=== PATIENT | male | born 1935 | race Caucasian/White ===

== ENCOUNTER 2017-03-05 09:34 | Day surgery (SDC) | payer MEDICARE ==
[~2017-03-05 09:34] MED LIST: AMIO200T2 PO; APIX5TAB PO; ASPI81TA50 PO; ATEN50TA PO; CALC1TAB75 PO; CARI350T14 PO; FENO134C PO; FURO-69 PO; FURO20TA3 PO; HYDROmorphone 2 MG/ML VIAL IV PRN; IV RINGERS,LACTATED 1000ML 1,000 ML IV SCH; LIDOCAINE 1% PF 2 ML VIAL. ID PRN; LIDOCAINE 2% 100 MG/5 ML SYRINGE. ONE; LISI-334 PO; METO50TA2 PO; MORPHINE SULFATE 2 MG/ML DISP.SYRIN. IV PRN; MULT-658 PO; OMEG1CAP27 PO; ONDANSETRON PF 4 MG/2 ML VIAL. IV PRN; OXYC1TAB8 PO; PROCHLORPERAZINE 10 MG/2 ML VIAL. IV PRN; PROPOFOL 10 MG/ML (20ML) VIAL. IV ONE; SENN1TAB70 PO; fentaNYL PF VIAL 100 MCG/2 ML VIAL IV PRN
--- NOTE | 2017-03-05 10:09 | EKG ---
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
[2017-03-05] MEDS ORDERED: BENZOCAINE ONE 20% MUCOSAL SPRAY. (10:40)
[2017-03-05] MEDS ORDERED: LIDOCAINE 2% VISCOUS 15 ML SOLUTION. ONE (10:40)
[2017-03-05] MEDS ORDERED: LIDOCAINE 2% TOPICAL JELLY 30GM TUBE. TP ONE ×2 (10:41)
--- NOTE | 2017-03-05 11:41 | EKG ---
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
[2017-03-05 11:58] VITALS: BP 130/73
--- NOTE | 2017-03-05 16:58 | CARD ---
APPROVED REPORT EXAM: Transesophageal echocardiogram with color flow Doppler and Synchronized Cardioversion. INDICATION Atrial Fibrillation PROCEDURE After obtaining informed consent, patient underwent transesophageal echo in the PACU. Type of Sedation : General Anesthesia Sedation was provided by anesthesiologist, see EMR for medications administered. Transesophageal probe was inserted and advanced into esophagus by Storm Chow MD. The NASREEN was performed without complications. Synchronized Cardioversion attempted: Successful Synchronized Cardioversion acheived with 200 Joules after 1 attempt(s). Rhythm following Synchronized Cardioversion: Sinus Rhythm with PAC's Throughout the procedure, the blood pressure, pulse oximetry, cardiac rhythm, and rate were monitored . The patient tolerated the procedure without adverse effects. Recovery from conscious sedation was une ventful and vital signs were stable. LEFT VENTRICLE The left ventricle is normal size. There is normal left ventricular wall thickness. Left ventricle sy stolic function is normal. The Ejection Fraction is 50-55%. There is normal LV segmental wall motion. RIGHT VENTRICLE The right ventricle is normal size. The right ventricular systolic function is normal. ATRIA The left atrium size is mild to moderately dilated. The right atrium size is normal. The interatrial septum is intact with no evidence for an atrial septal defect or patent foramen ovale as noted on 2-D or Doppler imaging. There is no thrombus noted in the left atrial appendage. AORTIC VALVE The aortic valve is normal in structure. The aortic valve is trileaflet. Doppler and Color Flow revea led mild aortic regurgitation. There is no significant aortic valvular stenosis. MITRAL VALVE The mitral valve leaflets are thickened. Doppler and Color Flow revealed mild mitral regurgitation. TRICUSPID VALVE The tricuspid valve is normal in structure and function. Doppler and Color Flow revealed no tricuspid valve regurgitation noted. PULMONIC VALVE The pulmonic valve is not well visualized. Doppler and Color Flow revealed no pulmonic valvular regur gitation. GREAT VESSELS The aortic root is normal in size. The ascending aorta is normal in size. The IVC was visualized and appears normal in size. The SVC was visualized and appears normal in size. PERICARDIAL EFFUSION There is no evidence of significant pericardial effusion. Critical Notification Critical Value: No <Conclusion> Left ventricle systolic function is normal. The Ejection Fraction is 50-55%. There is normal LV segmental wall motion. There is no thrombus noted in the left atrial appendage. Successful cardioversion to Sinus Rhythm The left atrium size is mild to moderately dilated.
== END 2017-03-05 12:44 | disposition home or self-care (01) ==
LOC: SURG 09:34
PROVIDERS: ATTEND Internal Medicine Cardiovascular Disease
DX: I08.0 Rheumatic disorders of both mitral and aortic valves (principal); I48.91 Unspecified atrial fibrillation; I11.0 Hypertensive heart disease with heart failure; I50.9 Heart failure, unspecified; M19.91 Primary osteoarthritis, unspecified site; F17.200 Nicotine dependence, unspecified, uncomplicated; Z87.39 Personal history of other diseases of the musculoskeletal system and connective tissue; Z96.643 Presence of artificial hip joint, bilateral; Z72.89 Other problems related to lifestyle; Z86.69 Personal history of other diseases of the nervous system and sense organs; Z88.0 Allergy status to penicillin
CPT/HCPCS: 92960; 93005; 93312; 93325; 99152; 99153; J2704

== ENCOUNTER 2018-09-29 14:10 | Emergency (ER) | payer MEDICARE ==
[~2018-09-29] VITALS: Ht 180.3 cm; Wt 133.4 kg
[~2018-09-29 14:10] MED LIST changes: -AMIO200T2 PO; +AMIO200T4 PO; +AMLO10TA4 PO; +AMLO5TAB10 PO; +GLUC-142 PO; -HYDROmorphone 2 MG/ML VIAL IV PRN; -IV RINGERS,LACTATED 1000ML 1,000 ML IV SCH; -LIDOCAINE 1% PF 2 ML VIAL. ID PRN; -LIDOCAINE 2% 100 MG/5 ML SYRINGE. ONE; +LISI-130 PO; -METO50TA2 PO; +METO50TA6 PO; -MORPHINE SULFATE 2 MG/ML DISP.SYRIN. IV PRN; -ONDANSETRON PF 4 MG/2 ML VIAL. IV PRN; -PROCHLORPERAZINE 10 MG/2 ML VIAL. IV PRN; -PROPOFOL 10 MG/ML (20ML) VIAL. IV ONE; -fentaNYL PF VIAL 100 MCG/2 ML VIAL IV PRN
--- NOTE | 2018-09-29 15:07 | PHYS DOC ---
Past Medical History Past Medical History: A-Fib, COPD, High Cholesterol, Hypertension, Other Additional Past Medical Histor: neuropathy Past Surgical History: Other Additional Past Surgical Histo: x2 rocío hip replaced, rectal fistula Alcohol Use: Rarely Drug Use: None Adult General Chief Complaint Chief Complaint: ABNORMAL LABS [facility] HPI Patient is a 83 year old Male who presents with [Abnormal labs today]. Reports he was at Dr Sibley office today and was told his potassium level was extremely high. States he had labs drawn a few days earlier and was found to have decre ased renal function. Does report he has been taking his lasix, had taken it twice daily, has had decreased urine output, but reports this has been similar for the past few months. Had been also taking Bactrim over the past 5 days for foot wound. Reports when they talked to Dr Sibley today, they were told to stop taking Lisinopril and Bactrim, but patient had already taken both today. Patient reports he feels good, only a little SOA, had been given Albuterol inhaler at Dr Sibley office today as well. Review of Systems Review of Systems Constitutional: Denies fever or chills [] Eyes: Denies change in visual acuity, redness, or eye pain [] HENT: Denies nasal congestion or sore throat [] Respiratory: Denies cough . Reports minimal shortness of breath [] Cardiovascular: No additional information not addressed in HPI [Does report increased edema to lower extremities over the past few weeks] GI: Denies abdominal pain, nausea, vomiting, bloody stools or diarrhea [] : Denies hematuria [] Does report decreased urinary output over the past few weeks Musculoskeletal: Denies back pain or joint pain other than normal[] Integument: Denies rash. Does have chronic skin lesions to lower extremities [] Neurologic: Denies headache, focal weakness or sensory changes [] Endocrine: Denies polyuria or polydipsia [] All other systems were reviewed and found to be within normal limits, except as documented in this note. Current Medications Current Medications Current Medications Medications (Trade) Dose Ordered Sig/Bradford Start Time Stop Time Status Last Admin Dose Admin Sodium Chloride 500 ml @ 500 mls/hr 1X ONCE 09/29/18 16:45 09/29/18 17:44 09/29/18 16:45 500 MLS/HR Allergies Allergies Allergies Coded Allergies Type Severity Reaction Last Updated Verified Penicillins Allergy Severe Shortness of Air 03/05/17 Yes adhesive tape Allergy Intermediate 11/14/17 Yes Physical Exam Physical Exam Constitutional: Well developed, well nourished, no acute distress, non-toxic appearance. [] Eyes: PERRLA, EOMI, conjunctiva normal, no discharge. [] Neck: Normal range of motion, no tenderness, supple, no stridor. [] Cardiovascular:Heart rate regular rhythm, no murmur [] Lungs & Thorax: Bilateral breath sounds clear to auscultation [] Abdomen: Bowel sounds normal, soft, no tenderness, no masses, no pulsatile masses. abdomen firm, indifferent from normal[] Skin: Warm, dry, no erythema, no rash. [] Back: No tenderness, no CVA tenderness. [] Extremities: No tenderness, no cyanosis, no clubbing, ROM intact. Minimal pitting edema to lower extremities. [] Neurologic: Alert and oriented X 3, normal motor function, normal sensory funct ion, no focal deficits noted. [] Psychologic: Affect normal, judgement normal, mood normal. [] Current Patient Data Vital Signs Vital Signs Date Time Temp Pulse Resp B/P (MAP) Pulse Ox O2 Delivery O2 Flow Rate FiO2 09/29/18 15:30 98.0 100 20 143/74 (97) 94 Room Air 98.0 Lab Values Laboratory Tests Test 09/29/18 15:10 White Blood Count 6.7 x10^3/uL (4.0-11.0) Red Blood Count 4.17 x10^6/uL (4.30-5.70) L Hemoglobin 12.2 g/dL (13.0-17.5) L Hematocrit 37.6 % (39.0-53.0) L Mean Corpuscular Volume 90 fL (79-100) Mean Corpuscular Hemoglobin 29 pg (25-35) Mean Corpuscular Hemoglobin Concent 32 g/dL (31-37) Red Cell Distribution Width 15.3 % (11.5-14.5) H Platelet Count 244 x10^3/uL (140-400) Neutrophils (%) (Auto) 73 % (31-73) Lymphocytes (%) (Auto) 19 % (24-48) L Monocytes (%) (Auto) 6 % (0-9) Eosinophils (%) (Auto) 2 % (0-3) Basophils (%) (Auto) 1 % (0-3) Neutrophils # (Auto) 4.9 x10^3uL (1.8-7.7) Lymphocytes # (Auto) 1.3 x10^3/uL (1.0-4.8) Monocytes # (Auto) 0.4 x10^3/uL (0.0-1.1) Eosinophils # (Auto) 0.1 x10^3/uL (0.0-0.7) Basophils # (Auto) 0.0 x10^3/uL (0.0-0.2) Sodium Level 132 mmol/L (136-145) L Potassium Level 5.1 mmol/L (3.5-5.1) Chloride Level 100 mmol/L (98-107) Carbon Dioxide Level 22 mmol/L (21-32) Anion Gap 10 (6-14) Blood Urea Nitrogen 55 mg/dL (8-26) H Creatinine 2.7 mg/dL (0.7-1.3) H Estimated GFR (Cockcroft-Gault) 22.6 BUN/Creatinine Ratio 20 (6-20) Glucose Level 91 mg/dL (70-99) Calcium Level 8.8 mg/dL (8.5-10.1) Total Bilirubin 0.3 mg/dL (0.2-1.0) Aspartate Amino Transferase (AST) 49 U/L (15-37) H Alanine Aminotransferase (ALT) 27 U/L (16-63) Alkaline Phosphatase 37 U/L (46-116) L GW-Lzs-F-Type Natriuretic Peptide 825 pg/mL (0-449) H Total Protein 6.3 g/dL (6.4-8.2) L Albumin 3.6 g/dL (3.4-5.0) Albumin/Globulin Ratio 1.3 (1.0-1.7) Laboratory Tests 09/29/18 15:10 Laboratory Tests 09/29/18 15:10 EKG EKG EKG Obtained 09/29/18 @ 1534. Interpreted by Dr Zambrano Sinus rhythm, prolonged NJ, HR 100. No STEMI noted. [] Radiology/Procedures Radiology/Procedures PROCEDURE: CHEST PA & LATERAL CHEST PA LATERAL Clinical indications: Shortness of air. COMPARISON: December 18, 2009. 11/12/2017. Findings: Hyperinflation is seen consistent with COPD. No acute lung infiltrate or pleural effusion or pulmonary edema or lung mass or pneumothorax is seen. The heart size, pulmonary vasculature, mediastinum and both ric are stable. The osseous structures appear intact. Impression: No acute radiographic abnormality is seen. Electronically signed by: Natalie Sifuentes MD (09/29/2018 3:57 PM) [facility] DICTATED and SIGNED BY: NATALIE SIFUENTES MD DATE: 09/29/18 1557[] Course & Med Decision Making Course & Med Decision Making Pertinent Labs and Imaging studies reviewed. (See chart for details) Discussed findings with patient and family. Patient reports he really does not want to stay in hospital. Advised to stop taking bactrim and stop taking Lisinopril as previously recommended by PCP Advised to follow up with PCP, advised renal function declining from previous visits. Patient understands plan of care without further questions or concerns, will stop bactrim and lisinopril, will follow up with PCP. Has appointment with wound clinic next week. [] Dragon Disclaimer Dragon Disclaimer This electronic medical record was generated, in whole or in part, using a voice recognition dictation system. Departure Departure Impression: Primary Impression: Abnormal laboratory test result Additional Impression: Renal function impairment Disposition: 01 HOME, SELF-CARE Condition: GOOD Referrals: MADONNA LUCAS (PCP) Patient Instructions: Chronic Renal Insufficiency Additional Instructions: Stop taking the Lisinopril and Bactrim Follow up with Dr Sibley Your Potassium today was 5.1 Your Creatine was 2.7 - this has worsened since your last visit Problem Qualifiers PAT CASEY APRN September 29, 2018 15:07
[2018-09-29 15:20] LABS: BASO % 1 % (0-3); EOS # 0.1 x10^3/uL (0.0-0.7); EOS % 2 % (0-3); HEMATOCRIT 37.6 % (39.0-53.0); HEMOGLOBIN 12.2 g/dL (13.0-17.5); LYMPH # 1.3 x10^3/uL (1.0-4.8); LYMPH % 19 % (24-48); MEAN CORPUSCULAR HEMOGLOBIN 29 pg (25-35); MEAN CORPUSCULAR HGB CONC 32 g/dL (31-37); MEAN CORPUSCULAR VOLUME 90 fL (79-100); MONO # 0.4 x10^3/uL (0.0-1.1); MONO % 6 % (0-9); NEUT # 4.9 x10^3uL (1.8-7.7); NEUT % 73 % (31-73); PLATELET COUNT 244 x10^3/uL (140-400); RED BLOOD COUNT 4.17 x10^6/uL (4.30-5.70); RED CELL DISTRIBUTION WIDTH 15.3 % (11.5-14.5); WHITE BLOOD COUNT 6.7 x10^3/uL (4.0-11.0)
[2018-09-29 15:28] LABS: CALCIUM 8.8 mg/dL (8.5-10.1); CREATININE 2.7 mg/dL (0.7-1.3); GFR 22.6; POTASSIUM 5.1 mmol/L (3.5-5.1)
[2018-09-29 15:34] LABS: ALBUMIN 3.6 g/dL (3.4-5.0); ALBUMIN/GLOBULIN RATIO 1.3 (1.0-1.7); TOTAL BILIRUBIN 0.3 mg/dL (0.2-1.0); TOTAL PROTEIN 6.3 g/dL (6.4-8.2)
--- NOTE | 2018-09-29 16:00 | RAD ---
CHEST PA LATERAL Clinical indications: Shortness of air. COMPARISON: December 18, 2009. 11/12/2017. Findings: Hyperinflation is seen consistent with COPD. No acute lung infiltrate or pleural effusion or pulmonary edema or lung mass or pneumothorax is seen. The heart size, pulmonary vasculature, mediastinum and both ric are stable. The osseous structures appear intact. Impression: No acute radiographic abnormality is seen. Electronically signed by: Nacho Sifuentes MD (09/29/2018 3:57 PM) [place] [id number]
[2018-09-29] MEDS ORDERED: IV NORMAL SALINE 500ML BAG 500 ML IV ONE (16:45)
[2018-09-29 17:15] LABS: BILIRUBIN,URINE NEGATIVE (NEG); CLARITY,URINE CLEAR; COLOR,URINE YELLOW; NITRITE,URINE NEGATIVE (NEG); PROTEIN,URINE NEGATIVE (NEG-TRACE); UROBILINOGEN,URINE 0.2 mg/dL (0.2 mg/dL)
[2018-09-29 17:22] LABS: BACTERIA,URINE 0 /HPF (0-FEW); RBC,URINE 0 /HPF (0-2); WBC,URINE 0 /HPF (0-4)
[2018-09-29 17:32] VITALS: BP 144/79
--- NOTE | 2018-09-30 06:59 | EKG ---
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
== END 2018-09-29 18:41 | disposition home or self-care (01) ==
LOC: ER 14:10
DX: R79.89 Other specified abnormal findings of blood chemistry (principal); R94.4 Abnormal results of kidney function studies; I48.91 Unspecified atrial fibrillation; J44.9 Chronic obstructive pulmonary disease, unspecified; E78.00 Pure hypercholesterolemia, unspecified; I10 Essential (primary) hypertension; G62.9 Polyneuropathy, unspecified; Z88.0 Allergy status to penicillin; Z88.8 Allergy status to other drugs, medicaments and biological substances
CPT/HCPCS: 36415; 71046; 80053; 81001; 83880; 85025; 93005; 99285; J7040

== ENCOUNTER → 2018-10-08 | Outpatient (CLI) | payer MEDICARE ==
[2018-09-29 17:32] VITALS: BP 144/79
--- NOTE | 2018-10-08 16:58 | RAD ---
Left lower extremity arterial ultrasound, 10/08/2018: HISTORY: Nonhealing left leg wounds Duplex evaluation of the major arteries in the left lower extremity was performed including grayscale, color-flow and spectral Doppler analysis. The left common femoral, superficial femoral and popliteal arteries demonstrate triphasic Doppler waveforms. There are mild scattered atherosclerotic plaques. No significant focal velocity acceleration is seen to suggest high-grade stenosis. In the lower leg there are moderate arterial calcifications. Patent posterior tibial and anterior tibial arteries are evident in the left lower leg demonstrating monophasic Doppler waveforms. The left peroneal artery could not be visualized. The left dorsalis pedis artery is patent demonstrating a monophasic Doppler waveform. IMPRESSION: 1. Mild atherosclerotic plaquing without evidence of significant femoral-popliteal stenosis. 2. Moderate degradation of the Doppler waveforms in the left lower leg. 3. Nonvisualization of the left peroneal artery suggesting occlusion of that vessel. Ankle-brachial indices, 10/08/2018: Resting JM measurements were obtained. The right JM is 1.5 while the left JM is 1.09. The patient's known arterial calcifications may be elevating these measurements into the normal range. IMPRESSION: Normal resting JM measurements. Electronically signed by: Vazquez Noland MD (10/08/2018 4:55 PM) [facility]
== END | disposition home or self-care (01) ==
LOC: US 15:18
PROVIDERS: ATTEND Preventive Medicine Undersea and Hyperbaric Medicine
DX: I70.292 Other atherosclerosis of native arteries of extremities, left leg (principal); L97.929 Non-pressure chronic ulcer of unspecified part of left lower leg with unspecified severity
CPT/HCPCS: 93922; 93926

== ENCOUNTER → 2018-12-11 | Outpatient (CLI) | payer MEDICARE ==
--- NOTE | 2018-12-11 13:21 | EKG ---
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
--- NOTE | 2018-12-11 14:06 | CARD ---
MR#: [id number] Date of Study: 12/11/2018 Ordering Physician: PEPPER WALTERS, Referring Physician: PEPPER WALTERS, Tech: Lizzette Alfaro [facility] APPROVED REPORT EXAM: Two-dimensional and M-mode echocardiogram with Doppler and color Doppler. Other Information Quality : Technically LimitedHR: 133bpm Rhythm : Atrial FibrillationTechnically limited study due to body habitus, COPD, and heart rate. INDICATION Congenital Heart Disease 2D DIMENSIONS RVDd4.2 (2.9-3.5cm)Left Atrium(2D)4.0 (1.6-4.0cm) IVSd1.6 (0.7-1.1cm)Aortic Root(2D)4.2 (2.0-3.7cm) LVDd5.7 (3.9-5.9cm)LVOT Diameter2.6 (1.8-2.4cm) PWd1.3 (0.7-1.1cm)LVDs3.8 (2.5-4.0cm) FS (%) 32.7 %SV97.0 ml LVEF(%)60.4 (>50%) Aortic Valve AoV Peak Jian.142.0cm/sAoV VTI20.3cm AO Peak GR.8.1mmHgLVOT Peak Jian.84.1cm/s AO Mean GR.4mmHgAVA (VMAX)3.05cm2 DINORAH (VTI)3.00cm2 Tricuspid Valve TR P. [id number]/sRAP [id number] TR Peak Gr.[id number] LEFT VENTRICLE The Left Ventricle is borderline dilated. There is mild concentric left ventricular hypertrophy. The left ventricular systolic function is normal and the ejection fraction is within normal range. Ventri cular ejection fraction is 60-65% There is normal LV segmental wall motion. Transmitral Doppler flow pattern is abnormal. RIGHT VENTRICLE The right ventricle is mildly dilated. There is normal right ventricular wall thickness. Right ventri cular function cannot be assessed. ATRIA The left atrium is mildly dilated. The right atrium size is normal. The interatrial septum is intact with no evidence for an atrial septal defect or patent foramen ovale as noted on 2-D or Doppler imagi ng. AORTIC VALVE The aortic valve is not well visualized. Doppler and Color Flow revealed no significant aortic regurg itation. There is no significant aortic valvular stenosis. MITRAL VALVE The mitral valve is normal in structure and function. There is no evidence of mitral valve prolapse. There is no mitral valve stenosis. Doppler and Color Flow revealed trace mitral valve regurgitation. TRICUSPID VALVE The tricuspid valve is normal in structure and function. Doppler and Color Flow revealed trace tricus pid regurgitation. The PA pressure was estimated at 31 mmHg. There is no tricuspid valve prolapse or vegetation. There is no tricuspid valve stenosis. PULMONIC VALVE The pulmonic valve is not well visualized. GREAT VESSELS The aortic root is mildly enlarged. The IVC was not visualized. PERICARDIAL EFFUSION There is no evidence of significant pericardial effusion. Critical Notification Critical Value: No <Conclusion> The Left Ventricle is borderline dilated. The left ventricular systolic function is normal and the ejection fraction is within normal range. Ventricular ejection fraction is 60-65% There is mild concentric left ventricular hypertrophy. There is no significant aortic valvular stenosis. Doppler and Color Flow revealed no significant aortic regurgitation. Doppler and Color Flow revealed trace mitral valve regurgitation. Doppler and Color Flow revealed trace tricuspid regurgitation. The PA pressure was estimated at 31 mmHg. The aortic root is mildly enlarged. Signed by : Curt Begum MD Electronically Approved : 12/11/2018 14:06:17
== END | disposition home or self-care (01) ==
LOC: ECHO 12:34
PROVIDERS: ATTEND Internal Medicine Cardiovascular Disease
DX: I51.7 Cardiomegaly (principal); I70.0 Atherosclerosis of aorta; I44.4 Left anterior fascicular block; I50.30 Unspecified diastolic (congestive) heart failure; J44.9 Chronic obstructive pulmonary disease, unspecified; I48.91 Unspecified atrial fibrillation
CPT/HCPCS: 93005; 93306